=== PATIENT | female | born 1995 | race Hispanic/Latino ===

== ENCOUNTER 2018-11-11 09:36 | Emergency (ER) | payer BC ==
[~2018-11-11] VITALS: Ht 167.6 cm; Wt 135.3 kg
[2018-11-11] MEDS ORDERED: KETOROLAC TROMETHAMINE 60 MG/2 ML VIAL IM ONE (10:00)
[2018-11-11] MEDS ORDERED: KETOROLAC TROME10 MG PO (13:56)
[2018-11-11 14:18] VITALS: BP 136/96
--- NOTE | 2018-11-11 16:14 | Diagnostic Imaging Report ---
RIGHT KNEE - 4 IMAGES HISTORY: Pain, swelling, status post fall COMPARISON: None available. FINDINGS: Bones: A 0.9 x 0.3 cm ossific fragment adjacent to the periphery of the lateral tibial plateau. No aggressive osseous lesion. Joints: Osseous alignment is within normal limits. The joint spaces are well-maintained. Moderate nonspecific effusion. Soft tissues: Lateral soft tissue swelling. IMPRESSION: 1. Small avulsion fracture from the periphery of the lateral tibial plateau. 2. Recommend a follow-up MRI of the knee without contrast to assess for associated ligamentous injury, this may be performed on a short-term, but nonemergent basis. Signed by: Dr. Rosendo Gloria D.O., M.M.M. on 11/11/2018 4:11 PM
== END 2018-11-11 14:20 | disposition home or self-care (01) ==
LOC: ER 09:36
DX: M25.561 Pain in right knee (principal); S83.91XA Sprain of unspecified site of right knee, initial encounter; W01.0XXA Fall on same level from slipping, tripping and stumbling without subsequent striking against object, initial encounter; Y92.488 Other paved roadways as the place of occurrence of the external cause
CPT/HCPCS: 73562; 99284; J1885